=== PATIENT | male | born 1975 | race Caucasian/White ===

== ENCOUNTER 2018-10-08 09:47 | Inpatient (IN) | payer OTHER ==
[2018-10-08 10:14] VITALS: BMI 32.0
--- NOTE | 2018-10-08 11:23 | HP ---
CIWA Score Nausea/Vomitin Muscle Tremors: 2 Anxiety: 2 Agitation: 2 Paroxysmal Sweats: 1-Minimal Palms Moist Orientation: 0-Oriented Tacttile Disturbances: 1-Very Mild Itch/Numbness Auditory Disturbances: 1-Very Mild Visual Disturbances: 0-None Headache: 2-Mild CIWA-Ar Total Score: 13 - Admission Criteria OASAS Guidelines: Admission for Medically Managed Detox: Requires at least one of the followin. CIWA greater than 12 2. Seizures within the past 24 hours 3. Delirium tremens within the past 24 hours 4. Hallucinations within the past 24 hours 5. Acute intervention needed for co occurring medical disorder 6. Acute intervention needed for co occurring psychiatric disorder 7. Severe withdrawal that cannot be handled at a lower level of care (continued vomiting, continued diarrhea, abnormal vital signs) requiring intravenous medication and/or fluids 8. Admission ROS S - HPI Chief Complaint: i need help to stop drinking alcohol,cocaine,marijuana Allergies/Adverse Reactions: Allergies Allergy/AdvReac Type Severity Reaction Status Date / Time No Known Allergies Allergy Verified 10/08/18 11:27 History of Present Illness: this 43 years old male with alcohol,cocaine and marijuana dependence,seeking detox,withdrawal synptom,l seen in [facility] last night ,receiving medication,refer for detox syncope alcohol related last detox [facility] in 2018 nicotine dependence 10 cigarette/day longest period of sobriety 6 months plan to go to rehab after detox seizure last 05/03 hepatitis c - Ebola screening Have you traveled outside of the country in the last 21 days: No Have you had contact with anyone from an Ebola affected area: No Have you been sick,other than usual withdrawal symptoms: No Do you have a fever: No - Review of Systems Constitutional: Loss of Appetite, Malaise, Night Sweats, Changes in sleep, Weakness EENT: reports: Nose Congestion Respiratory: reports: No Symptoms reported Cardiac: reports: No Symptoms Reported GI: reports: Diarrhea, Nausea, Vomiting, Abdominal cramping : reports: No Symptoms Reported Musculoskeletal: reports: Back Pain, Muscle Pain Integumentary: reports: Dryness Neuro: reports: Headache, Tremors Endocrine: reports: No Symptoms Reported Hematology: reports: No Symptoms Reported Psychiatric: reports: No Sypmtoms Reported, Judgement Intact, Mood/Affect Appropiate, Orientated x3, other Other Systems: Reviewed and Negative Patient History - Patient Medical History Hx Anemia: No Hx Asthma: No Hx Chronic Obstructive Pulmonary Disease (COPD): No Hx Cancer: No Hx Cardiac Disorders: No Hx Congestive Heart Failure: No Hx Hypertension: No Hx Hypercholesterolemia: No Hx Pacemaker: No HX Cerebrovascular Accident: No Hx Seizures: No Hx Dementia: No Hx Diabetes: No Hx Gastrointestinal Disorders: No Hx Liver Disease: No Hx Genitourinary Disorders: No Hx Sexually Transmitted Disorders: No Hx Renal Disease (ESRD): No Hx Thyroid Disease: No Hx Human Immunodeficiency Virus (HIV): No (last 05/03) Hx Hepatitis C: Yes (no treament) Hx Depression: No Hx Suicide Attempt: No Hx Schizophrenia: No Other Medical History: no suicidal,no homicidal, - Patient Surgical History Past Surgical History: No Hx Neurologic Surgery: No Hx Cataract Extraction: No Hx Cardiac Surgery: No Hx Lung Surgery: No Hx Breast Surgery: No Hx Breast Biopsy: No Hx Abdominal Surgery: No Hx Appendectomy: No Hx Cholecystectomy: No Hx Genitourinary Surgery: No Hx Section: No Hx Orthopedic Surgery: No Anesthesia Reaction: No - PPD History Documented Results: Negative w/o proof Date: 08/27/14 Results: 0 mm PPD to be Administered?: Yes - Smoking Cessation Smoking history: Current every day smoker Have you smoked in the past 12 months: Yes Aproximately how many cigarettes per day: 10 Hx Chewing Tobacco Use: No Initiated information on smoking cessation: Yes 'Breaking Loose' booklet given: 10/08/18 - Substance & Tx. History Hx Alcohol Use: Yes Hx Substance Use: Yes Substance Use Type: Alcohol, Cocaine, Marijuana Hx Substance Use Treatment: Yes ([facility] 2018 completed) - Substances Abused Alcohol Route: Oral Frequency: Daily Amount used: 2-3 pints vodka Age of first use: 15 Date of Last Use: 10/08/18 Cocaine Route: Smoking Frequency: 1-2 times per week Amount used: 2 bag Age of first use: 34 Date of Last Use: 10/07/18 Marijuana/Hashish Route: Smoking Frequency: 1-2 times per week Amount used: 1 bag Age of first use: 17 Date of Last Use: 10/01/18 Family Disease History - Family Disease History Family Disease History: Other: Father (alcohol,) Admission Physical Exam BHS - Vital Signs Vital Signs: Vital Signs - 24 hr 10/08/18 10:13 Temperature 99.7 F H Pulse Rate 80 Respiratory 18 Rate Blood Pressure 88/52 L - Physical General Appearance: Yes: Moderate Distress, Tremorous, Irritable, Sweating, Anxious HEENTM: Yes: Normal ENT Inspection, Normocephalic, ABRAHAM, Pharynx Normal Respiratory: Yes: Within Normal Limits, Lungs Clear, Normal Breath Sounds, No Respiratory Distress Neck: Yes: Within Normal Limits, Supple, Trachea in good position Breast: Yes: Within Normal Limits Cardiology: Yes: Within Normal Limits, Regular Rhythm, Regular Rate, S1, S2 Abdominal: Yes: Within Normal Limits, Normal Bowel Sounds, Non Tender, Soft Genitourinary: Yes: Within Normal Limits Back: Yes: Within Normal Limits Musculoskeletal: Yes: Back pain, Muscle Pain Extremities: Yes: Normal Range of Motion, Tremors Neurological: Yes: finished cigar maker II-XII NML intact, Fully Oriented, Alert, Motor Strength 5/5 Integumentary: Yes: Dry Lymphatic: Yes: Within Normal Limits - Diagnostic (1) Alcohol dependence with uncomplicated withdrawal Current Visit: No Status: Chronic (2) Cocaine dependence Current Visit: Yes Status: Acute (3) Cannabis dependence Current Visit: Yes Status: Acute (4) Nicotine dependence Current Visit: Yes Status: Acute (5) Alcohol related seizure Current Visit: Yes Status: Acute (6) Syncope Current Visit: Yes Status: Acute (7) Hepatitis C Current Visit: Yes Status: Acute Cleared for Admission [facility] - Detox or Rehab [facility] Level of Care: Medically Managed Detox Regimen/Protocol: Librium [facility] Breath Alcohol Content Breath Alcohol Content: 0 Urine Drug Screen - Results Drug Screen Negative: No Urine Drug Screen Results: THC-Marijuana, HARRIET-Cocaine, BZO-Benzodiazepines Inpatient Rehab Admission - Rehab Decision to Admit Inpatient rehab admission?: No
[2018-10-08] MEDS ORDERED: MENTHOL/PHENOL 1 EACH UD MM PRN (11:40)
[2018-10-08] MEDS ORDERED: chlordiazePOXIDE HCL 25 MG CAPSULE PO PRN (11:40)
[2018-10-08] MEDS ORDERED: MAGNESIUM CITRATE 300 ML BOTTLE PO PRN (11:40)
[2018-10-08] MEDS ORDERED: MAG HYDROX/AL HYDROX/SIMETH 30 ML UNIT-DOSE CUP PO PRN (11:40)
[2018-10-08] MEDS ORDERED: IBUPROFEN 400 MG TABLET (FP) PO PRN (11:40)
[2018-10-08] MEDS ORDERED: METHOCARBAMOL 500 MG TABLET PO PRN (11:40)
[2018-10-08] MEDS ORDERED: hydrOXYzine PAMOATE 25 MG CAPSULE (FP) PO PRN (11:40)
[2018-10-08] MEDS ORDERED: ACETAMINOPHEN 325 MG TABLET (FP) PO PRN ×2 (11:40)
[2018-10-08] MEDS ORDERED: BISMUTH SUBSALICYLATE 524 MG/30 ML UD PO PRN (11:40)
[2018-10-08] MEDS ORDERED: MELATONIN 5 MG TABLETS PO PRN (11:40)
[2018-10-08] MEDS ORDERED: MAGNESIUM HYDROX 2400MG/30ML ORAL SUSPENSION 30 ML CUP PO PRN (11:40)
[2018-10-08] MEDS: chlordiazePOXIDE HCL 25 MG CAPSULE PO SCH ×2 (18:09→22:29)
[2018-10-08] MEDS: THIAMINE HCL 100 MG TABLET (FP) PO SCH (22:29)
[2018-10-09 05:16] LABS: PH,URINE 8.5 (5.0-8.0); URINE APPEARANCE CLEAR; URINE BILIRUBIN NEGATIVE (NEGATIVE); URINE COLOR YELLOW; URINE GLUCOSE (UA) NEGATIVE (NEGATIVE); URINE KETONE NEGATIVE (NEGATIVE); URINE LEUK ESTERASE NEGATIVE (NEGATIVE); URINE NITRITE NEGATIVE (NEGATIVE); URINE PROTEIN NEGATIVE (NEGATIVE); URINE UROBILINOGEN 0.2 mg/dL (0.2-1.0)
[2018-10-09] MEDS: chlordiazePOXIDE HCL 25 MG CAPSULE PO SCH ×2 (06:06→10:15)
[2018-10-09] MEDS: PRENATAL VITAMINS W/ FOLIC ACID TABLET (FP) PO SCH (10:15)
[2018-10-09 12:18] LABS: HEMATOCRIT 38.4 % (35.4-49); HEMOGLOBIN 13.3 GM/dL (11.7-16.9); MCH 32.8 pg (25.7-33.7); MCHC 34.7 g/dl (32.0-35.9); MEAN CELL VOLUME 94.6 fl (80-96); MEAN PLT VOLUME 9.5 fl (7.5-11.1); PLATELET COUNT 74 K/MM3 (134-434); RBC 4.06 M/mm3 (4.00-5.60); RDW 13.8 % (11.9-15.9); WHITE BLOOD COUNT 4.5 K/mm3 (4.0-10.0)
[2018-10-09 12:49] LABS: ALBUMIN 3.7 g/dl (3.4-5.0); ALK PHOS 50 U/L (45-117); ANION GAP 9 MMOL/L (8-16); BLOOD UREA NITROGEN 12 mg/dL (7-18); CALCIUM 8.5 mg/dL (8.5-10.1); CHLORIDE 101 mmol/L (98-107); CO2 27 mmol/L (21-32); CREATININE 0.7 mg/dL (0.55-1.3); GLUCOSE,RANDOM 85 mg/dL (74-106); SGOT/AST 216 U/L (15-37); SGPT/ALT 214 U/L (13-61); SODIUM 136 mmol/L (136-145); TOT PROT 7.5 g/dl (6.4-8.2)
--- NOTE | 2018-10-09 14:55 | PN ---
[facility] CIWA - CIWA Score Nausea/Vomitin-No Nausea/No Vomiting Muscle Tremors: 3 Anxiety: 1-Mildly Anxious Agitation: 2 Paroxysmal Sweats: 1-Minimal Palms Moist Orientation: 2-Disoriented Date<2 days Tacttile Disturbances: 0-None Auditory Disturbances: 0-None Visual Disturbances: 0-None Headache: 0-None Present CIWA-Ar Total Score: 9 S Progress Note (SOAP) Subjective: doing better after a few doses of librium better concentration social with peers in day room Objective: 10/09/18 14:56 Vital Signs Temperature 97.7 F 10/09/18 13:20 Pulse Rate 97 H 10/09/18 13:20 Respiratory Rate 20 10/09/18 13:20 Blood Pressure 118/86 10/09/18 13:20 O2 Sat by Pulse Oximetry (%) Laboratory Last Values WBC 4.5 K/mm3 (4.0-10.0) 10/09/18 06:00 RBC 4.06 M/mm3 (4.00-5.60) 10/09/18 06:00 Hgb 13.3 GM/dL (11.7-16.9) 10/09/18 06:00 Hct 38.4 % (35.4-49) 10/09/18 06:00 MCV 94.6 fl (80-96) 10/09/18 06:00 MCH 32.8 pg (25.7-33.7) 10/09/18 06:00 MCHC 34.7 g/dl (32.0-35.9) 10/09/18 06:00 RDW 13.8 % (11.9-15.9) 10/09/18 06:00 Plt Count 74 K/MM3 (134-434) L D 10/09/18 06:00 MPV 9.5 fl (7.5-11.1) 10/09/18 06:00 Sodium 136 mmol/L (136-145) 10/09/18 06:00 Potassium 4.0 mmol/L (3.5-5.1) 10/09/18 06:00 Chloride 101 mmol/L (98-107) 10/09/18 06:00 Carbon Dioxide 27 mmol/L (21-32) 10/09/18 06:00 Anion Gap 9 MMOL/L (8-16) 10/09/18 06:00 BUN 12 mg/dL (7-18) 10/09/18 06:00 Creatinine 0.7 mg/dL (0.55-1.3) 10/09/18 06:00 Creat Clearance w eGFR 123.08 (>60) 10/09/18 06:00 Random Glucose 85 mg/dL (74-106) 10/09/18 06:00 Calcium 8.5 mg/dL (8.5-10.1) 10/09/18 06:00 Total Bilirubin 1.0 mg/dL (0.2-1) 10/09/18 06:00 AST 216 U/L (15-37) H 10/09/18 06:00 ALT 214 U/L (13-61) H 10/09/18 06:00 Alkaline Phosphatase 50 U/L (45-117) 10/09/18 06:00 Total Protein 7.5 g/dl (6.4-8.2) 10/09/18 06:00 Albumin 3.7 g/dl (3.4-5.0) 10/09/18 06:00 Urine Color Yellow 10/09/18 00:05 Urine Appearance Clear 10/09/18 00:05 Urine pH 8.5 (5.0-8.0) H D 10/09/18 00:05 Ur Specific [place] 1.015 (1.010-1.035) 10/09/18 00:05 Urine Protein Negative (NEGATIVE) 10/09/18 00:05 Urine Glucose (UA) Negative (NEGATIVE) 10/09/18 00:05 Urine Ketones Negative (NEGATIVE) 10/09/18 00:05 Urine Blood Negative (NEGATIVE) 10/09/18 00:05 Urine Nitrite Negative (NEGATIVE) 10/09/18 00:05 Urine Bilirubin Negative (NEGATIVE) 10/09/18 00:05 Urine Urobilinogen 0.2 mg/dL (0.2-1.0) 10/09/18 00:05 Ur Leukocyte Esterase Negative (NEGATIVE) 10/09/18 00:05 RPR Titer Nonreactive (NONREACTIVE) 10/09/18 06:00 HIV 1&2 Antibody Screen Negative 10/08/18 12:00 HIV P24 Antigen Negative 10/08/18 12:00 lab noted 10/09/18 15:10 patient agrees to change detox regimen from librium to ativan due to ast elevation repeat ast Assessment: 10/09/18 15:11 alcohol withdrawal sx discuss alcohol related liver insult 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
[2018-10-09] MEDS ORDERED: LORazepam 0.5 MG TABLET PO PRN (15:08)
[2018-10-09] MEDS ORDERED: LORazepam 1 MG TABLET PO SCH (15:15)
[2018-10-09] MEDS ORDERED: chlordiazePOXIDE HCL 25 MG CAPSULE PO SCH (17:00)
[2018-10-09] MEDS: LORazepam 1 MG TABLET PO SCH ×2 (17:30→22:44)
[2018-10-09] MEDS: THIAMINE HCL 100 MG TABLET (FP) PO SCH (22:44)
[2018-10-10] MEDS: LORazepam 0.5 MG TABLET PO SCH ×4 (05:55→23:05)
[2018-10-10] MEDS: PRENATAL VITAMINS W/ FOLIC ACID TABLET (FP) PO SCH (10:30)
--- NOTE | 2018-10-10 15:06 | PN ---
S CIWA - CIWA Score Nausea/Vomitin-No Nausea/No Vomiting Muscle Tremors: 2 Anxiety: 1-Mildly Anxious Agitation: 1-Slight > Activity Paroxysmal Sweats: 1-Minimal Palms Moist Orientation: 1-Uncertain about Date Tacttile Disturbances: 0-None Auditory Disturbances: 0-None Visual Disturbances: 0-None Headache: 0-None Present CIWA-Ar Total Score: 6 BHS Progress Note (SOAP) Subjective: feeling better well rested sleep better at night social with peers in day room Objective: 10/10/18 15:03 Vital Signs Temperature 99.0 F 10/10/18 13:47 Pulse Rate 93 H 10/10/18 13:47 Respiratory Rate 18 10/10/18 13:47 Blood Pressure 128/78 10/10/18 13:47 O2 Sat by Pulse Oximetry (%) Laboratory Last Values WBC 4.5 K/mm3 (4.0-10.0) 10/09/18 06:00 RBC 4.06 M/mm3 (4.00-5.60) 10/09/18 06:00 Hgb 13.3 GM/dL (11.7-16.9) 10/09/18 06:00 Hct 38.4 % (35.4-49) 10/09/18 06:00 MCV 94.6 fl (80-96) 10/09/18 06:00 MCH 32.8 pg (25.7-33.7) 10/09/18 06:00 MCHC 34.7 g/dl (32.0-35.9) 10/09/18 06:00 RDW 13.8 % (11.9-15.9) 10/09/18 06:00 Plt Count 74 K/MM3 (134-434) L D 10/09/18 06:00 MPV 9.5 fl (7.5-11.1) 10/09/18 06:00 Sodium 136 mmol/L (136-145) 10/09/18 06:00 Potassium 4.0 mmol/L (3.5-5.1) 10/09/18 06:00 Chloride 101 mmol/L (98-107) 10/09/18 06:00 Carbon Dioxide 27 mmol/L (21-32) 10/09/18 06:00 Anion Gap 9 MMOL/L (8-16) 10/09/18 06:00 BUN 12 mg/dL (7-18) 10/09/18 06:00 Creatinine 0.7 mg/dL (0.55-1.3) 10/09/18 06:00 Creat Clearance w eGFR 123.08 (>60) 10/09/18 06:00 Random Glucose 85 mg/dL (74-106) 10/09/18 06:00 Calcium 8.5 mg/dL (8.5-10.1) 10/09/18 06:00 Total Bilirubin 1.0 mg/dL (0.2-1) 10/09/18 06:00 AST 209 U/L (15-37) H 10/10/18 07:30 ALT 214 U/L (13-61) H 10/09/18 06:00 Alkaline Phosphatase 50 U/L (45-117) 10/09/18 06:00 Total Protein 7.5 g/dl (6.4-8.2) 10/09/18 06:00 Albumin 3.7 g/dl (3.4-5.0) 10/09/18 06:00 Urine Color Yellow 10/09/18 00:05 Urine Appearance Clear 10/09/18 00:05 Urine pH 8.5 (5.0-8.0) H D 10/09/18 00:05 Ur Specific [place] 1.015 (1.010-1.035) 10/09/18 00:05 Urine Protein Negative (NEGATIVE) 10/09/18 00:05 Urine Glucose (UA) Negative (NEGATIVE) 10/09/18 00:05 Urine Ketones Negative (NEGATIVE) 10/09/18 00:05 Urine Blood Negative (NEGATIVE) 10/09/18 00:05 Urine Nitrite Negative (NEGATIVE) 10/09/18 00:05 Urine Bilirubin Negative (NEGATIVE) 10/09/18 00:05 Urine Urobilinogen 0.2 mg/dL (0.2-1.0) 10/09/18 00:05 Ur Leukocyte Esterase Negative (NEGATIVE) 10/09/18 00:05 RPR Titer Nonreactive (NONREACTIVE) 10/09/18 06:00 HIV 1&2 Antibody Screen Negative 10/08/18 12:00 HIV P24 Antigen Negative 10/08/18 12:00 lab noted Assessment: 10/10/18 15:05 mild withdrawal sx encourage the patient to bring in lab report to aftercare appointment for ast elevation Plan: continue detox
[2018-10-10] MEDS ORDERED: chlordiazePOXIDE HCL 10 MG CAPSULE PO SCH (17:00)
[2018-10-10] MEDS ORDERED: chlordiazePOXIDE HCL 10 MG CAPSULE PO PRN (17:00)
[2018-10-10] MEDS: THIAMINE HCL 100 MG TABLET (FP) PO SCH (22:50)
[2018-10-11] MEDS ORDERED: LORazepam 0.5 MG TABLET PO ONE (06:00)
[2018-10-11 09:09] VITALS: BP 109/76; PULSE 85; TEMP 98.4
[2018-10-11] MEDS: PRENATAL VITAMINS W/ FOLIC ACID TABLET (FP) PO SCH (10:23)
--- NOTE | 2018-10-11 12:40 | DS ---
[facility] Detox Discharge Summary Admission Date: 10/08/18 Discharge Date: 10/11/18 - History Present History: Alcohol Dependence Additional Comments: 43 years old mald admitted on 10/08/18 for alcohol withdrawal stabilization completed detox regimen after[facility] Pertinent Past History: keep medication list in wallet bring in lab report and medication list to follow up appointment utilize [facility] services if necessary go to the ER for emergency services - Physical Exam Results Vital Signs: Vital Signs Temperature 98.4 F 10/11/18 09:06 Pulse Rate 85 10/11/18 09:06 Respiratory Rate 18 10/11/18 09:06 Blood Pressure 109/76 10/11/18 09:06 O2 Sat by Pulse Oximetry (%) Pertinent Admission Physical Exam Findings: alcohol withdrawal sx Laboratory Last Values WBC 4.5 K/mm3 (4.0-10.0) 10/09/18 06:00 RBC 4.06 M/mm3 (4.00-5.60) 10/09/18 06:00 Hgb 13.3 GM/dL (11.7-16.9) 10/09/18 06:00 Hct 38.4 % (35.4-49) 10/09/18 06:00 MCV 94.6 fl (80-96) 10/09/18 06:00 MCH 32.8 pg (25.7-33.7) 10/09/18 06:00 MCHC 34.7 g/dl (32.0-35.9) 10/09/18 06:00 RDW 13.8 % (11.9-15.9) 10/09/18 06:00 Plt Count 74 K/MM3 (134-434) L D 10/09/18 06:00 MPV 9.5 fl (7.5-11.1) 10/09/18 06:00 Sodium 136 mmol/L (136-145) 10/09/18 06:00 Potassium 4.0 mmol/L (3.5-5.1) 10/09/18 06:00 Chloride 101 mmol/L (98-107) 10/09/18 06:00 Carbon Dioxide 27 mmol/L (21-32) 10/09/18 06:00 Anion Gap 9 MMOL/L (8-16) 10/09/18 06:00 BUN 12 mg/dL (7-18) 10/09/18 06:00 Creatinine 0.7 mg/dL (0.55-1.3) 10/09/18 06:00 Creat Clearance w eGFR 123.08 (>60) 10/09/18 06:00 Random Glucose 85 mg/dL (74-106) 10/09/18 06:00 Calcium 8.5 mg/dL (8.5-10.1) 10/09/18 06:00 Total Bilirubin 1.0 mg/dL (0.2-1) 10/09/18 06:00 AST 209 U/L (15-37) H 10/10/18 07:30 ALT 214 U/L (13-61) H 10/09/18 06:00 Alkaline Phosphatase 50 U/L (45-117) 10/09/18 06:00 Total Protein 7.5 g/dl (6.4-8.2) 10/09/18 06:00 Albumin 3.7 g/dl (3.4-5.0) 10/09/18 06:00 Urine Color Yellow 10/09/18 00:05 Urine Appearance Clear 10/09/18 00:05 Urine pH 8.5 (5.0-8.0) H D 10/09/18 00:05 Ur Specific [place] 1.015 (1.010-1.035) 10/09/18 00:05 Urine Protein Negative (NEGATIVE) 10/09/18 00:05 Urine Glucose (UA) Negative (NEGATIVE) 10/09/18 00:05 Urine Ketones Negative (NEGATIVE) 10/09/18 00:05 Urine Blood Negative (NEGATIVE) 10/09/18 00:05 Urine Nitrite Negative (NEGATIVE) 10/09/18 00:05 Urine Bilirubin Negative (NEGATIVE) 10/09/18 00:05 Urine Urobilinogen 0.2 mg/dL (0.2-1.0) 10/09/18 00:05 Ur Leukocyte Esterase Negative (NEGATIVE) 10/09/18 00:05 RPR Titer Nonreactive (NONREACTIVE) 10/09/18 06:00 HIV 1&2 Antibody Screen Negative 10/08/18 12:00 HIV P24 Antigen Negative 10/08/18 12:00 lab noted ast evelation - Treatment Hospital Course: Detox Protocol Followed, Detoxed Safely, Responded well, Discharged Condition Good, Rehab Referral Accepted Patient has Accepted a Rehab Referral to: [facility] - Medication Discharge Medications: Ambulatory Orders NK [No Known Home Medication] 10/13/16 - Diagnosis (1) Hepatitis C Status: Chronic Qualifiers: Viral hepatitis chronicity: carrier Qualified Code(s): B18.2 - Chronic viral hepatitis C (2) Nicotine dependence Status: Acute Qualifiers: Nicotine product type: cigarettes Substance use status: in withdrawal Qualified Code(s): F17.213 - Nicotine dependence, cigarettes, with withdrawal (3) Alcohol dependence with uncomplicated withdrawal Status: Acute - AMA Did Patient Leave Against Medical Advice: No
[2018-10-11] MEDS ORDERED: chlordiazePOXIDE HCL 10 MG CAPSULE PO SCH (17:00)
== END 2018-10-11 10:56 | disposition home or self-care (01) | DRG 774 ==
LOC: YASAS 09:47 → Y3N 11:38
PROVIDERS: ADMIT Surgery; ATTEND Surgery
PROC: HZ2ZZZZ Detoxification Services for Substance Abuse Treatment (ICD-10-PCS; principal; 2018-10-08)
DX: F10.230 Alcohol dependence with withdrawal, uncomplicated (principal); F14.20 Cocaine dependence, uncomplicated; F12.20 Cannabis dependence, uncomplicated; F17.213 Nicotine dependence, cigarettes, with withdrawal; B18.2 Chronic viral hepatitis C; Z86.69 Personal history of other diseases of the nervous system and sense organs
CPT/HCPCS: 36415; 80053; 81003; 84450; 85027; 86593; 87389